=== PATIENT | male | born 1995 | race Caucasian/White ===

== ENCOUNTER 2022-06-22 20:13 | Emergency (ER) | payer OTHER ==
[2022-06-22 21:08] LABS: RAPID STREP SCREEN Negative (Negative)
--- NOTE | 2022-06-22 23:09 | ED Physician Documentation ---
History of Present Illness - Stated complaint Stated Complaint: THROAT PX/ - Chief complaint Chief Complaint: Heent - Additonal information Additional information: Patient 26-year-old male presenting to the emergency department with sore thr oat. Symptoms began today. Does report some popping behind his ears and sinus congestion. Denies fever, chills, chest pain, shortness of breath, abdominal pain, nausea vomiting, diarrhea, constipation. Review of Systems Constitutional: denies: Fever Eyes: denies: Loss of vision Ears: denies: Loss of hearing Nose: denies: Rhinorrhea / runny nose Throat: reports: Sore throat Cardiac: denies: Chest pain / pressure Respiratory: denies: Dyspnea GI: denies: Abdominal Pain PD PAST MEDICAL HISTORY - Present Medications Home Medications: Ambulatory Orders Medication Instructions Recorded Confirmed Famotidine [Pepcid] 20 mg PO BID #10 tablet 11/11/21 predniSONE [Deltasone] 60 mg PO DAILY 5 Days #15 tablet 11/11/21 - Allergies Allergies/Adverse Reactions: Allergies Allergy/AdvReac Type Severity Reaction Status Date / Time No Known Drug Allergies Allergy Verified 06/22/22 20:37 PD ED PE NORMAL - General General: Alert and oriented X 3, No acute distress, Well developed/nourished - HEENT HEENT: Atraumatic, PERRL, EOMI, Ears normal, Moist mucous membranes, Pharynx benign - Neck Neck: Supple, no meningeal sign, No bony TTP, No adenopathy, Thyroid normal, No JVD, No bruit - Cardiac Cardiac: RRR, No murmur - Respiratory Respiratory: No respiratory distress - Abdomen Abdomen: Normal bowel sounds Results - Vitals Vitals: Vital Signs - 24 hr 06/22/22 20:37 Temperature 36.5 C Heart Rate 73 Respiratory 16 Rate Blood Pressure 150/90 H O2 Saturation 100 Oxygen O2 Source Room air - Labs Labs: Laboratory Tests 06/22/22 20:38 Group A Strep Rapid Negative PD Medical Decision Making - ED course Complexity details: reviewed results ED course: Patient 26-year-old male presenting to the emergency department with sore throat x1 day. Afebrile, hemodynamic stable on arrival to the emergency department. HEENT exam benign. There is no uvular deviation, sublingual elevation or tracheal mobility that would be of suspicion for deep space neck infection. His strep pharyngitis swab was negative. He was offered COVID and influenza screening which is negative. Was given dose Decadron. Instructed in the use of salt water gargles, throat lozenges, oral and nasal decongestants and encouraged to follow-up with primary care. Departure - Departure Disposition: 01 Home, Self Care Clinical Impression: Pharyngitis Qualifiers: Pharyngitis/tonsillitis etiology: unspecified etiology Qualified Code(s): J02.9 - Acute pharyngitis, unspecified Instructions: ED Pharyngitis Viral Report Pending Comments: [facility] Today in the emergency department your evaluated for any possible life- threatening medical emergency. Your physical exam is very reassuring. Your strep pharyngitis swab was negative. Will be sent for culture and further testing. In the interim you can use [id number] medicated throat lozenges, salt water gargles and oral and nasal decongestant such as Sudafed and oxymetazoline to help with your symptoms. Please make a follow-up appointment with your primary care doctor. If it anytime you develop new or worsening symptoms please not hesitate to return.
[2022-06-22] MEDS: CHERRY SYRUP 10 ML UDC PO ONE (23:16)
[2022-06-22] MEDS: DEXAMETHASONE 10 MG/ML VIAL PO STA (23:16)
[2022-06-22 23:25] VITALS: BP 135/86
== END 2022-06-22 23:25 | disposition home or self-care (01) ==
LOC: ED 20:13
DX: J02.9 Acute pharyngitis, unspecified (principal)
CPT/HCPCS: 87070; 87430; 99283; A9270